=== PATIENT | male | born 1945 | race Caucasian/White ===

== ENCOUNTER → 2017-03-25 | Outpatient (CLI) | payer OTHER | LOC: FIMAGING 09:56 | PROVIDERS: ATTEND Specialist | DX: N20.0 Calculus of kidney (principal) ==

== ENCOUNTER → 2017-08-29 | Outpatient (CLI) | payer OTHER | LOC: FIMAGING 15:58 | PROVIDERS: ATTEND Physician Assistant | DX: J40 Bronchitis, not specified as acute or chronic (principal); J45.909 Unspecified asthma, uncomplicated ==

== ENCOUNTER → 2018-02-17 | Outpatient (CLI) | payer OTHER | LOC: FLAB 11:35 | PROVIDERS: ATTEND Specialist | DX: N20.0 Calculus of kidney (principal) ==